=== PATIENT | male | born 1945 | race Caucasian/White ===

== ENCOUNTER → 2016-07-28 | Outpatient (CLI) | payer OTHER ==
--- NOTE | 2016-07-28 11:29 | US ---
Limited Right Upper Quadrant Ultrasound History: Right upper quadrant pain. Comparison: Report from abdominal ultrasound November 04, 2004, no images available. Findings: The liver is diffusely echogenic with no focal hepatic masses, with limited visualization o f portions of the liver due to body habitus and liver echogenicity. The liver is enlarged, measuring 19.3 cm. There is no intrahepatic biliary dilatation. The common bile duct measures 5 mm and is stevenson l. A mobile 2 cm stone is present in the gallbladder, which is otherwise normal. The right kidney january sures 12.9 cm and has normal echotexture and contour without hydronephrosis. The visible aorta is nor mal caliber with partial obscuration of the aorta by overlying bowel gas. The pancreas is obscured b y overlying bowel gas. Impression: 1. Cholelithiasis without evidence of cholecystitis. 2. Enlarged fatty liver. 3. Additional findings, as above.
== END ==
LOC: FIMAGING 10:10
PROVIDERS: ATTEND Family Medicine
DX: K80.20 Calculus of gallbladder without cholecystitis without obstruction (principal); K76.0 Fatty (change of) liver, not elsewhere classified; R16.0 Hepatomegaly, not elsewhere classified

== ENCOUNTER → 2018-07-12 | Outpatient (CLI) | payer OTHER | LOC: GIMAGING 10:55 → EDSTATUS 15:51 | PROVIDERS: ATTEND Family Medicine | DX: M46.96 Unspecified inflammatory spondylopathy, lumbar region (principal) | CPT/HCPCS: 72100-PO ==